=== PATIENT | female | born 1990 ===

== ENCOUNTER 2017-11-02 06:45 | Inpatient (IN) | payer OTHER ==
[2017-11-02 08:15] VITALS: BMI 31.6
[2017-11-02] MEDS ORDERED: Lactated Ringer's 1,000 ML IV SCH (08:15)
--- NOTE | 2017-11-02 08:24 | OBHP ---
Datetime: 11/02/2017 08:19 IP Adm Impression: Term, intrauterine ; Active labor IP Admit Plan: Admit to unit; Initiate labor protocol Admit Comment, IP Provider: at 38+weeks vame with ctxs started yesterday night, irrg , no vb , lof+fm obhx 2 x 31, 29 we pmh de med pnv all nkda psh de sich de ve /-2 a/p at 38+weks in labor admit to l_d npo/ivf labs laura manag cont jesus and efm anticipate Pelvic Type - PN: Adequate Extremities - PN: Normal Abdomen - PN: Normal Back - PN: Normal Breast - PN: Normal Lungs - PN: Normal Heart - PN: Normal Thyroid - PN: Normal Neurologic - PN: Normal HEENT - PN: Normal General - PN: Normal FHR - Baseline A Provider: 120 Contraction Comments Provider: q1-3 IP Hx Assessment: The History has been Reviewed and is Current EGA AdmitDate IP: 38.2 Vital Signs Provider: Reviewed IP Chief Complaint: Uterine contractions NICHD Variability Prov Fetus A: Moderate 6-25bpm NICHD Accel Fetus A IP Provider: 15X15 FHR Category Provider Fetus A: Category I Dilatation, Provider: 4 Effacement, Provider: 70 Station, Provider: -2 Genitourinary Exam: Normal DTRs - PN: Normal
[2017-11-02] MEDS ORDERED: Oxytocin 30 UNIT 30 UNITS/500 ML BAG IV ONE ×2 (08:54→15:40)
[2017-11-02] MEDS ORDERED: Oxytocin 30 UNIT 30 UNITS/500 ML BAG IV SCH (09:30)
[2017-11-02 09:32] LABS: BASO % 0.4 % (0.0-2.0); EOS # 0.1 K/uL (0.0-0.7); EOS % 1.4 % (0.0-4.0); HEMOGLOBIN 12.7 g/dL (11.0-16.0); LYMPH # 2.2 K/uL (1.0-4.3); LYMPH % 21.8 % (20.0-40.0); MEAN CELL VOLUME 87.6 fL (81.0-99.0); MEAN CORPUSCULAR HGB CONC 34.3 g/dL (33.0-37.0); MEAN PLATELET VOLUME 10.2 fL (7.2-11.7); MONO # 0.8 K/uL (0.0-0.8); MONO % 7.9 % (0.0-10.0); NEUT # 6.9 K/uL (1.8-7.0); NEUT % 68.5 % (50.0-75.0); RBC 4.21 Mil/uL (3.80-5.20); RED CELL DISTRIBUTION WIDTH 14.2 % (11.5-14.5); URINE BILIRUBIN NEGATIVE (NEGATIVE); URINE BLOOD 2+ (NEGATIVE); URINE CLARITY Clear (Clear); URINE COLOR Yellow (YELLOW); URINE GLUCOSE (UA) NORMAL (Normal)
[2017-11-02 09:33] LABS: SQUAMOUS EPITHIAL 2 /hpf (0-5); URINE BACTERIA RARE (<OCC); URINE LEUKOCYTE ESTERASE NEG Leu/uL (Negative); URINE PROTEIN NEGATIVE (NEGATIVE); URINE UROBILINOGEN NORMAL mg/dL (0.2-1.0)
[2017-11-02] MEDS ORDERED: Bupivacaine HCl/FentaNYL Cit 100 ML EPI ONE (10:32)
[2017-11-02] MEDS ORDERED: Dextrose 5%/Lactated Ringer's 1,000 ML IV SCH (11:50)
[2017-11-02] MEDS ORDERED: Oxycodone/Acetaminophen 5/325 mg Tab PO PRN ×2 (15:40)
[2017-11-02] MEDS ORDERED: Benzocaine/Menthol 20%-0.5% Topical Spray (60 ml) TOP PRN (15:40)
--- NOTE | 2017-11-02 15:40 | OBDS ---
MATERNAL INFORMATION Estimated Blood Loss (ml): 300 Provider Comments: baby deloivrd in yazmin. end clean 9/9 no com cord gas send placente send LABOR SUMMARY EDC: 11/14/2017 00:00 No. Babies in Womb: 1 LABOR INFORMATION Group B Beta Strep: Negative MEMBRANES Amniotic Fluid Amount: None STAGES OF LABOR Stage 3 hrs: 0 Stage 3 min: 2 VAGINAL DELIVERY Episiotomy: None Laceration Extension: First Degree Laceration Type: Perineal Laceration Repair: Yes Laceration Repair Note: repaired 3 chromic Initial Vag Sponge Count: 10 Final Vag Sponge Count: 10 Initial Vag Sharps Count: 20 Final Vag Sharps Count: 20 Sponge Count Correct: Yes Sharps Count Correct: Yes Count Comment: repaired with 2.0 chromic BABY A INFORMATION Infant Delivery Date/Time: 11/02/2017 15:29 Method of Delivery: Vaginal Born in Route : No : N/A Forceps: N/A Vacuum Extraction: N/A SHOULDER DYSTOCIA BABY A Infant Delivery Date/Time: 11/02/2017 15:29 PRESENTATION/POSITION BABY A Presentation: Cephalic Cephalic Presentation: Vertex Vertex Position: Left Occipital Anterior Breech Presentation: N/A PLACENTA INFORMATION BABY A Placenta Delivery Time : 11/02/2017 15:31 Placenta Method of Delivery: Spontaneous Placenta Status: Delivered INFORMATION BABY A Gestational Status: Term Outcome : Liveborn Infant Condition : Stable Infant Sex: Female IDENTIFICATION/MEDS BABY A ID Band Number: [id number] Sensor Applied: Yes Sensor Number: [id number] CORD INFORMATION BABY A No. Cord Vessels: 3 Nuchal Cord : N/A Suction: Mouth; Nose
[2017-11-02] MEDS ORDERED: Tdap Vaccine 0.5 ml Vial (10-64 yrs) IM ONE (15:41)
--- NOTE | 2017-11-02 15:47 | OBPN ---
Datetime: 11/02/2017 15:36 IP Progress Impression: Normal progression of labor IP Procedures: Sterile Vag Exam IP Progress Plan: Continue present management FHR - Baseline A Provider: 130 IP Progress Note Comment: pt was xamined at bd side ve fd/100/0 will staet pushing soon NICHD Variability Prov Fetus A: Moderate 6-25bpm Dilatation, Provider: 10 Effacement, Provider: 100 Station, Provider: 0 Datetime: 11/02/2017 08:19 Contraction Comments Provider: q1-3 Vital Signs Provider: Reviewed NICHD Accel Fetus A IP Provider: 15X15 FHR Category Provider Fetus A: Category I
--- NOTE | 2017-11-03 06:38 | OBPPN ---
Datetime: 11/03/2017 06:35 PP Pain Prov: Within normal limits PP Nausea Prov: Denies PP Flatus Prov: Yes PP Abdomen/Uterus Prov: Normal PP Lochia Prov: Normal PP Extremities Prov: Normal PP Impression Prov: Normal progression PP Plan Prov: Continue present management PP Progress Note Prov: pt was seen at bed side, pain under control,no n/v, toleratimg dei,voiding,mi n lochia, flatus+ ppd#1 s/p cont pnc cont paim cot pp care Vital Signs Provider PP: Reviewed; Within Normal Limits
[2017-11-03 07:56] LABS: BASO # 0.1 K/uL (0.0-0.2); BASO % 0.6 % (0.0-2.0); EOS # 0.2 K/uL (0.0-0.7); EOS % 1.4 % (0.0-4.0); HEMOGLOBIN 11.5 g/dL (11.0-16.0); LYMPH # 2.4 K/uL (1.0-4.3); LYMPH % 17.8 % (20.0-40.0); MEAN CELL VOLUME 88.1 fL (81.0-99.0); MEAN CORPUSCULAR HEMOGLOBIN 30.8 pg (27.0-31.0); MEAN PLATELET VOLUME 9.8 fL (7.2-11.7); MONO # 0.6 K/uL (0.0-0.8); MONO % 4.6 % (0.0-10.0); NEUT % 75.6 % (50.0-75.0); RBC 3.75 Mil/uL (3.80-5.20); RED CELL DISTRIBUTION WIDTH 14.6 % (11.5-14.5); WHITE BLOOD COUNT 13.3 K/uL (4.8-10.8)
[2017-11-03 08:54] VITALS: O2SAT 98
[2017-11-04 08:02] VITALS: BP 100/64; PULSE 66; RESP 18; TEMP 98.1
--- NOTE | 2017-11-04 10:37 | CP.PCM.DIS ---
Provider - Provider Date of Admission: 11/02/17 08:15 Attending physician: Julián Lane MD Time Spent in preparation of Discharge (in minutes): 45 Diagnosis - Discharge Diagnosis (1) Status: Acute Hospital Course - Lab Results Lab Results: Most Recent Lab Values WBC 13.3 K/uL (4.8-10.8) H 11/03/17 07:49 RBC 3.75 Mil/uL (3.80-5.20) L 11/03/17 07:49 Hgb 11.5 g/dL (11.0-16.0) 11/03/17 07:49 Hct 33.0 % (34.0-47.0) L 11/03/17 07:49 MCV 88.1 fL (81.0-99.0) 11/03/17 07:49 MCH 30.8 pg (27.0-31.0) 11/03/17 07:49 MCHC 35.0 g/dL (33.0-37.0) 11/03/17 07:49 RDW 14.6 % (11.5-14.5) H 11/03/17 07:49 Plt Count 148 K/uL (130-400) 11/03/17 07:49 MPV 9.8 fL (7.2-11.7) 11/03/17 07:49 Neut % (Auto) 75.6 % (50.0-75.0) H 11/03/17 07:49 Lymph % (Auto) 17.8 % (20.0-40.0) L 11/03/17 07:49 [place] % (Auto) 4.6 % (0.0-10.0) 11/03/17 07:49 Eos % (Auto) 1.4 % (0.0-4.0) 11/03/17 07:49 Baso % (Auto) 0.6 % (0.0-2.0) 11/03/17 07:49 Neut # (Auto) 10.0 K/uL (1.8-7.0) H 11/03/17 07:49 Lymph # (Auto) 2.4 K/uL (1.0-4.3) 11/03/17 07:49 [place] # (Auto) 0.6 K/uL (0.0-0.8) 11/03/17 07:49 Eos # (Auto) 0.2 K/uL (0.0-0.7) 11/03/17 07:49 Baso # (Auto) 0.1 K/uL (0.0-0.2) 11/03/17 07:49 Urine Color Yellow (YELLOW) 11/02/17 09:23 Urine Clarity Clear (Clear) 11/02/17 09:23 Urine pH 6.0 (5.0-8.0) 11/02/17 09:23 Ur Specific [place] 1.017 (1.003-1.030) 11/02/17 09:23 Urine Protein Negative mg/dL (NEGATIVE) 11/02/17 09:23 Urine Glucose (UA) Normal mg/dL (Normal) 11/02/17 09:23 Urine Ketones Negative mg/dL (NEGATIVE) 11/02/17 09:23 Urine Blood 2+ (NEGATIVE) H 11/02/17 09:23 Urine Nitrate Negative (NEGATIVE) 11/02/17 09:23 Urine Bilirubin Negative (NEGATIVE) 11/02/17 09:23 Urine Urobilinogen Normal mg/dL (0.2-1.0) 11/02/17 09:23 Ur Leukocyte Esterase Neg Reji/uL (Negative) 11/02/17 09:23 Urine WBC (Auto) 3 /hpf (0-5) 11/02/17 09:23 Urine RBC (Auto) 18 /hpf (0-3) H 11/02/17 09:23 Ur Squamous Epith Cells 2 /hpf (0-5) 11/02/17 09:23 Urine Bacteria Rare (<OCC) 11/02/17 09:23 RPR Nonreactive (NONREACTIVE) 11/02/17 09:23 HIV 1&2 Antibody Screen Negative (NEGATIVE) 11/02/17 09:23 Blood Type O POSITIVE 11/02/17 09:23 Antibody Screen Negative 11/02/17 09:23 - Hospital Course Hospital Course: Pt is a 26yo F who presented to the hospital at 38 wks with contractions that had started on 11/01. She denied vaginal bleeding, LOF, but admitted to movement. On 11/02 she had a , with a 1st degree tear that was repaired with 2.0 chromic. She is now doing better, she denies fevers, chills, nasuea, vomiting, she is tolerating her diet. She states that her pain is well controlled on her current pain regimen. She is passing gas and having normal BMs. She is ambulating well with some pain that she states is tolerable. She is interested in going home and is in agreement with the plan to send her home. - Date & Time of H&P Date of H&P: 11/04/17 Time of H&P: 10:37 Discharge Exam - Head Exam Head Exam: ATRAUMATIC, NORMAL INSPECTION, NORMOCEPHALIC - Eye Exam Eye Exam: EOMI, Normal appearance - Respiratory Exam Respiratory Exam: NORMAL BREATHING PATTERN, UNREMARKABLE. absent: Accessory Muscle Use, Respiratory Distress - Cardiovascular Exam Cardiovascular Exam: +S1, +S2 - GI/Abdominal Exam GI & Abdominal Exam: Normal Bowel Sounds. absent: Distended, Firm, Guarding - Neurological Exam Neurological exam: Alert, Oriented x3 - Psychiatric Exam Psychiatric exam: Normal Affect, Normal Mood Discharge Plan - Discharge Medications Prescriptions: Ibuprofen [Motrin Tab] 800 mg PO TID PRN #30 tab PRN Reason: Pain, Moderate (4-7) - Follow Up Plan Condition: GOOD Disposition: HOME/ ROUTINE Additional Instructions: - Please follow up with Dr. Lane in 3 weeks - No sex, and nothing inserted into vagina for 6 weeks - Please take pain medications as directed for pain as needed. - Please continue pre- vitamins - No heavy lifting for 6 weeks
[2017-11-04] MEDS ORDERED: Tdap Vaccine 0.5 ml Vial (10-64 yrs) IM ONE (14:30)
== END 2017-11-04 15:30 | disposition home or self-care (01) | DRG 373 ==
LOC: C.EROB 06:45 → C.4D 08:15 → C.4M 17:40
PROVIDERS: ADMIT Obstetrics & Gynecology; ATTEND Obstetrics & Gynecology
PROC: 10E0XZZ Delivery of Products of Conception, External Approach (ICD-10-PCS; principal; 2017-11-02)
PROC: 0HQ9XZZ Repair Perineum Skin, External Approach (ICD-10-PCS; 2017-11-02)
DX: O70.0 First degree perineal laceration during delivery (principal); Z3A.38 38 weeks gestation of pregnancy; Z37.0 Single live birth